=== PATIENT | female | born 1990 | race Two or more races ===

== ENCOUNTER 2017-05-20 09:10 | Emergency (ER) | payer SELFPAY ==
[~2017-05-20] VITALS: Ht 175.3 cm; Wt 191.1 kg
[2017-05-20] MEDS ORDERED: SODIUM CHLORIDE FLUSH 10ML SYR IVF ONE (10:00)
[2017-05-20] MEDS ORDERED: ONDANSETRON 2MG/ML, 2ML IVPush ONE (10:00)
[2017-05-20] MEDS ORDERED: MORPHINE SULFATE 4 MG/ML, 1ML IVPush PRN (10:00)
[2017-05-20 10:07] LABS: BASOPHILS # (AUTO) 0.04 x10^3/uL (0-0.1); BASOPHILS % (AUTO) 1 % (0-1); EOSINOPHILS # (AUTO) 0.14 x10^3/uL (0-0.4); EOSINOPHILS % (AUTO) 2 % (1-7); LYMPHOCYTES # (AUTO) 1.46 x10^3/uL (1-3.4); LYMPHOCYTES % (AUTO) 21 % (22-44); MD NO; MEAN CORPUSCULAR HGB CONC 34.1 g/dL (32.4-35.8); MEAN CORPUSCULAR VOLUME 91.1 fL (80-100); MONOCYTES # (AUTO) 0.45 x10^3/uL (0.2-0.8); MONOCYTES % (AUTO) 6 % (2-9); NEUTROPHILS # (AUTO) 4.93 x10^3/uL (1.8-6.8); NEUTROPHILS % (AUTO) 70 % (42-75); PLATELET COUNT 356 x10^3/uL (130-400); RED BLOOD COUNT 4.71 x10^6/uL (3.82-5.3); RED CELL DISTRIBUTION WIDTH 12.8 % (9.6-15.2)
[2017-05-20] MEDS ORDERED: ONDANSETRON 2MG/ML, 2ML ONE (10:11)
[2017-05-20] MEDS ORDERED: MORPHINE SULFATE 4 MG/ML, 1ML ONE (10:12)
[2017-05-20 10:17] LABS: ALBUMIN 3.2 g/dL (3.4-5.0); ANION GAP 7 mmol/L (5-15); CALCIUM 8.5 mg/dL (8.5-10.1); CHLORIDE 104 mmol/L (98-107)
[2017-05-20 10:22] LABS: ALANINE AMINOTRANSFERASE 38 U/L (12-78); ALKALINE PHOSPHATASE 75 U/L (45-117); BILIRUBIN,TOTAL 0.9 mg/dL (0.2-1.0); CREATININE 0.92 mg/dL (0.55-1.02); TOTAL PROTEIN 8.2 g/dL (6.4-8.2)
[2017-05-20] MEDS ORDERED: OMNIPAQUE 350 MG/ML, 150 ML BOTTLE ONE (11:17)
[2017-05-20 12:04] LABS: MICROSCOPIC INDICATED
[2017-05-20 12:24] LABS: CULTURE INDICATED? YES
[2017-05-20 12:46] VITALS: BP 103/49
== END 2017-05-20 12:49 | disposition home or self-care (01) ==
LOC: ED 12:17
DX: R10.32 Left lower quadrant pain (principal); E66.01 Morbid (severe) obesity due to excess calories; Z68.44 Body mass index [BMI] 60.0-69.9, adult
CPT/HCPCS: 36415; 74177; 80053; 81001; 83690; 84703; 85025; 87086; 96374; 96375; 99285; J2405; Q9967

== ENCOUNTER 2017-08-12 10:56 | Emergency (ER) | payer OTHER ==
[~2017-08-12] VITALS: Ht 172.7 cm; Wt 191.0 kg
[2017-08-12 11:01] VITALS: BP 220/75
== END 2017-08-12 12:24 | disposition home or self-care (01) ==
LOC: ED 12:00
DX: J15.9 Unspecified bacterial pneumonia (principal); J00 Acute nasopharyngitis [common cold]; R10.9 Unspecified abdominal pain; Z87.891 Personal history of nicotine dependence
CPT/HCPCS: 71046; 99284

== ENCOUNTER 2019-03-31 21:02 | Emergency (ER) | payer MEDICAID, OTHER ==
[~2019-03-31] VITALS: Ht 170.2 cm; Wt 232.0 kg
[2019-03-31 21:07] VITALS: BP 157/97
--- NOTE | 2019-03-31 22:04 | NUR ---
PT TO XRAY
--- NOTE | 2019-03-31 22:05 | NUR ---
THIS IS A 28Y F THAT COMES IN FOR COUGH X2DAYS PT STS SHE HAS BLOOD IN HER MUCUS THAT SHE IS COUGHING UP. PT AFEBRILE, NO ADVENTAGOUS BREATH SOUNDS, PT A/O X4, FRIEND AT BEDSIDE URSULA
[2019-03-31 22:21] LABS: BASOPHILS % (AUTO) 2 % (0-1); EOSINOPHILS # (AUTO) 0.19 x10^3/uL (0-0.4); EOSINOPHILS % (AUTO) 3 % (1-7); LYMPHOCYTES # (AUTO) 1.81 x10^3/uL (1-3.4); LYMPHOCYTES % (AUTO) 26 % (22-44); MD NO; MEAN CORPUSCULAR HEMOGLOBIN 30.6 pg (27.0-34.8); MEAN CORPUSCULAR HGB CONC 33.1 g/dL (32.4-35.8); MEAN CORPUSCULAR VOLUME 92.3 fL (80-100); MEAN PLATELET VOLUME 7.2 fL (7.4-10.4); MONOCYTES # (AUTO) 0.35 x10^3/uL (0.2-0.8); MONOCYTES % (AUTO) 5 % (2-9); NEUTROPHILS % (AUTO) 65 % (42-75); PLATELET COUNT 345 x10^3/uL (130-400); RED BLOOD COUNT 4.73 x10^6/uL (3.82-5.3); RED CELL DISTRIBUTION WIDTH 13.6 % (9.6-15.2)
[2019-03-31 22:35] LABS: ALANINE AMINOTRANSFERASE 43 U/L (12-78); ALBUMIN 3.1 g/dL (3.4-5.0); ANION GAP 4 mmol/L (5-15); CALCIUM 8.6 mg/dL (8.5-10.1); CHLORIDE 108 mmol/L (98-107); CREATININE 0.93 mg/dL (0.55-1.02)
[2019-03-31 22:38] LABS: ALKALINE PHOSPHATASE 87 U/L (45-117); BILIRUBIN,TOTAL 0.3 mg/dL (0.2-1.0); TOTAL PROTEIN 8.4 g/dL (6.4-8.2)
--- NOTE | 2019-03-31 23:14 | NUR ---
Patient/Caregiver given discharge instructions and they have confirmed that they understand the instructions. Patient ambulatory with steady gait.
== END 2019-03-31 23:30 | disposition home or self-care (01) ==
LOC: ED 23:00
DX: R04.2 Hemoptysis (principal); J20.9 Acute bronchitis, unspecified; Z87.891 Personal history of nicotine dependence
CPT/HCPCS: 36415; 71046; 80053; 84703; 85025; 85379; 93005; 99284

== ENCOUNTER 2019-05-08 15:09 | Emergency (ER) | payer SELFPAY ==
[~2019-05-08] VITALS: Ht 175.3 cm; Wt 229.8 kg
[2019-05-08] MEDS ORDERED: ALBUTEROL SULFATE 2.5 MG/3 ML ONE (15:41)
[2019-05-08] MEDS ORDERED: SODIUM CHLORIDE FLUSH 10ML SYR IVF ONE (17:00)
--- NOTE | 2019-05-08 17:01 | NUR ---
UNABLE TO ESTABLISH IV ACCESS. PER CT PT EXCEEDS WEIGHT LIMIT FOR CT SCAN AND WILL BE UNABLE TO DO CT NECK ANYWAY. NOTIFIED.
[2019-05-08] MEDS ORDERED: DIPHENHYDRAMINE 50 MG/ML, 1ML IM ONE (17:30)
[2019-05-08] MEDS ORDERED: DEXAMETHASONE 4 MG TABLET ONE (17:30)
[2019-05-08] MEDS ORDERED: DIPHENHYDRAMINE 50 MG/ML, 1ML ONE (17:30)
[2019-05-08] MEDS ORDERED: DEXAMETHASONE 4 MG TABLET PO ONE (17:30)
--- NOTE | 2019-05-08 18:02 | NUR ---
PT RESTING IN [facility] [place], AWAITNG DISPO FROM MD. PT SLEEPING COMFORTABLY 93% ON ROOM AIR. CALL LIGHT WITHIN REACH.
[2019-05-08 18:32] VITALS: BP 113/83
== END 2019-05-08 18:47 | disposition home or self-care (01) ==
LOC: ED 16:09
DX: R06.00 Dyspnea, unspecified (principal); T78.40XA Allergy, unspecified, initial encounter; X58.XXXA Exposure to other specified factors, initial encounter; Z87.891 Personal history of nicotine dependence
CPT/HCPCS: 70360; 93005; 94640; 96372; 99285; J1200